=== PATIENT | male | born 1965 | race Caucasian/White ===

== ENCOUNTER 2017-02-16 13:30 | Inpatient (IN) | payer SELFPAY ==
[2017-02-16 13:43] VITALS: BMI 27.7
--- NOTE | 2017-02-16 15:18 | HP ---
COWS - Scale Resting Pulse: 1= SC 81-100 Sweatin= Chills/Flushing Restless Observation: 1= Difficult to Sit Still Pupil Size: 0= Normal to Room Light Bone or Joint Aches: 2= Severe Diffuse Aches Runny Nose/ Eye Tearin= Runny Nose/Eyes GI Upset > 30mins: 3= Vomiting/Diarrhea Tremor Observation: 2= Slight Tremor Visible Yawning Observation: 1= 1-2x During Session Anxiety or Irritability: 2=Irritable/Anxious Goose Flesh Skin: 3=Piloerection COWS Score: 18 Admission ROS S - HPI Chief Complaint: "I want to get clean so that I can get a job and get back to supporting my family." Patient is here to Detox from Heroin. Allergies/Adverse Reactions: Allergies Allergy/AdvReac Type Severity Reaction Status Date / Time No Known Allergies Allergy Verified 02/16/17 13:57 History of Present Illness: Patient is a 51 YO male here to Detox from Heroin. This is patient's first detox admission at [facility]. Patient has had previous Detox admissions at [facility] ([place]) and [facility] ([place], [place].) Mosty recent Detox: '[facility] ([place]). Longest period without drug use: 12 years ( 1995 - 2008). Exam Limitations: No Limitations - Ebola screening Have you traveled outside of the country in the last 21 days: No Have you had contact with anyone from an Ebola affected area: No Have you been sick,other than usual withdrawal symptoms: No Do you have a fever: No - Review of Systems Constitutional: Chills, Diaphoresis, Loss of Appetite, Malaise, Night Sweats, Changes in sleep, Unintentional Wgt. Loss (Lost approx. 15 lbs. over last 6 months.) EENT: reports: Nose Congestion, Sinus Pressure Respiratory: reports: No Symptoms reported Cardiac: reports: No Symptoms Reported GI: reports: Diarrhea, Nausea, Poor Appetite, Vomiting, Abdominal cramping : reports: No Symptoms Reported Musculoskeletal: reports: Back Pain Integumentary: reports: No Symptoms Reported Neuro: reports: No Symptoms reported Endocrine: reports: No Symptoms Reported Hematology: reports: No Symptoms Reported Psychiatric: reports: Judgement Intact, Mood/Affect Appropiate, Orientated x3, Anxious, Depressed (Occasional. No Past Treatment.) Other Systems: Reviewed and Negative Patient History - Patient Medical History Hx Anemia: No Hx Asthma: No Hx Chronic Obstructive Pulmonary Disease (COPD): No Hx Cancer: No Hx Cardiac Disorders: No Hx Congestive Heart Failure: No Hx Hypertension: No Hx Hypercholesterolemia: No Hx Pacemaker: No HX Cerebrovascular Accident: No Hx Seizures: No Hx Dementia: No Hx Diabetes: No Hx Gastrointestinal Disorders: No Hx Liver Disease: No Hx Genitourinary Disorders: No Hx Sexually Transmitted Disorders: No Hx Renal Disease (ESRD): No Hx Thyroid Disease: No Hx Human Immunodeficiency Virus (HIV): No (Last Tested: 2015: NEGATIVE.) Hx Hepatitis C: No (Last Tested: 2016: NEGATIVE.) Hx Depression: Yes (Occasional.) Hx Suicide Attempt: No (PATIENT DENIES CURRENT SI / HI.) Hx Bipolar Disorder: No Hx Schizophrenia: No Other Medical History: DENIES. - Patient Surgical History Past Surgical History: No Hx Neurologic Surgery: No Hx Cataract Extraction: No Hx Cardiac Surgery: No Hx Lung Surgery: No Hx Breast Surgery: No Hx Breast Biopsy: No Hx Abdominal Surgery: No Hx Appendectomy: No Hx Cholecystectomy: No Hx Genitourinary Surgery: No Hx Section: No Hx Orthopedic Surgery: No Anesthesia Reaction: No - PPD History Previous Implant?: Yes Documented Results: Negative w/o proof Implanted On Prior R Admission?: No PPD to be Administered?: Yes - Reproductive History Patient is a Female of Child Bearing Age (11 -55 yrs old): No (PATIENT IS MALE.) - Smoking Cessation Smoking history: Current every day smoker Have you smoked in the past 12 months: Yes Aproximately how many cigarettes per day: 40 Cigars Per Day: 0 Hx Chewing Tobacco Use: No Initiated information on smoking cessation: Yes 'Breaking Loose' booklet given: 02/16/17 (GIVEN ON UNIT.) - Substance & Tx. History Hx Alcohol Use: No Hx Substance Use: Yes Substance Use Type: Heroin Hx Substance Use Treatment: Yes (Detox/Rehab admissions at several locations ( most recent: '[facility])) - Substances Abused Heroin Route: Injection Frequency: Daily Amount used: 10-20 bags Age of first use: 20 Date of Last Use: 02/16/17 Family Disease History - Family Disease History Family Disease History: Diabetes: Grandparent ([place]), Heart Disease: Grandparent Admission Physical Exam BHS - Vital Signs Vital Signs: Vital Signs - 24 hr 02/16/17 13:39 Temperature 98.9 F Pulse Rate 90 Respiratory 18 Rate Blood Pressure 150/90 - Physical General Appearance: Yes: No Apparent Distress, Nourished, Appropriately Dressed , Anxious HEENTM: Yes: Hearing grossly Normal, Normocephalic, Normal Voice, GALA, Pharynx Normal Respiratory: Yes: Chest Non-Tender, Lungs Clear, No Respiratory Distress, No Accessory Muscle Use Neck: Yes: No masses,lesions,Nodules, Supple, Trachea in good position Breast: Yes: Breast Exam Deferred Cardiology: Yes: Regular Rhythm, Regular Rate, S1, S2 Abdominal: Yes: Normal Bowel Sounds, Non Tender, Soft, Protuberent Genitourinary: Yes: Within Normal Limits Back: Yes: Decreased Range of Motion Musculoskeletal: Yes: full range of Motion, Gait Steady Extremities: Yes: Normal Capillary Refill, Normal Inspection, Normal Range of Motion, Non-Tender Neurological: Yes: Fully Oriented, Alert, Normal Mood/Affect, Normal Response Integumentary: Yes: Normal Color, Dry, Warm, Track Han (Noted on bilateral forearms and bilateral upper legs. No signs of infection noted at any affected site.) Lymphatic: Yes: Within Normal Limits - Diagnostic (1) Opioid dependence with withdrawal Current Visit: Yes Status: Acute (2) Nicotine dependence Current Visit: Yes Status: Acute Qualifiers: Nicotine product type: cigarettes Substance use status: uncomplicated Qualified Code(s): F17.210 - Nicotine dependence, cigarettes, uncomplicated Cleared for Admission [facility] - Detox or Rehab [facility] Level of Care: Medically Managed Detox Regimen/Protocol: Methadone [facility] Breath Alcohol Content Breath Alcohol Content: 0 Urine Drug Screen - Results Drug Screen Negative: No Urine Drug Screen Results: OPI-Opiates, TCA-Tricyclic Antidepress, OXY-Oxycodone
[2017-02-16] MEDS ORDERED: MAGNESIUM CITRATE 300 ML BOTTLE PO PRN (15:44)
[2017-02-16] MEDS ORDERED: NICOTINE POLACRILEX 4 MG GUM BUC PRN (15:44)
[2017-02-16] MEDS ORDERED: ACETAMINOPHEN 325 MG TABLET (FP) PO PRN (15:44)
[2017-02-16] MEDS ORDERED: LOPERAMIDE HCL 2 MG CAPSULE PO PRN (15:44)
[2017-02-16] MEDS ORDERED: guaiFENesin/D-METHORPHAN HB 10 ML UNIT-DOSE CUPS PO PRN (15:44)
[2017-02-16] MEDS ORDERED: MAGNESIUM HYDROX 2400MG/30ML ORAL SUSPENSION 30 ML CUP PO PRN (15:44)
[2017-02-16] MEDS ORDERED: P-EPHED 60MG/TRIPROLIDI 2.5MG TABLET PO PRN (15:44)
[2017-02-16] MEDS ORDERED: MAG HYDROX/AL HYDROX/SIMETH 30 ML UNIT-DOSE CUP PO PRN (15:44)
[2017-02-16] MEDS ORDERED: MENTHOL/PHENOL 1 EACH UD MM PRN (15:44)
[2017-02-16] MEDS ORDERED: METHADONE HCL 10 MG TABLET (FOR DETOX USE ONLY) PO ONE ×2 (15:51→23:00)
[2017-02-16 18:44] LABS: HEMATOCRIT 45.1 % (35.4-49); HEMOGLOBIN 15.1 GM/dL (11.7-16.9); MCH 28.2 pg (25.7-33.7); MCHC 33.6 g/dl (32.0-35.9); MEAN PLT VOLUME 9.3 fl (7.5-11.1); PLATELET COUNT 186 K/MM3 (134-434); RBC 5.36 M/mm3 (4.00-5.60); RDW 13.8 % (11.9-15.9); WHITE BLOOD COUNT 7.1 K/mm3 (4.0-10.0)
[2017-02-16 18:50] LABS: ALBUMIN 4.2 g/dl (3.4-5.0); ANION GAP 5 (8-16); BLOOD UREA NITROGEN 20 mg/dL (7-18); CALCIUM 9.1 mg/dL (8.5-10.1); CHLORIDE 99 mmol/L (98-107); CO2 31 mmol/L (21-32); CREATININE 1.1 mg/dL (0.7-1.3); GLUCOSE,RANDOM 200 mg/dL (74-106); POTASSIUM 4.4 mmol/L (3.5-5.1); SGOT/AST 14 U/L (15-37); SGPT/ALT 34 U/L (12-78); SODIUM 135 mmol/L (136-145)
[2017-02-16 18:52] LABS: ALK PHOS 39 U/L (45-117); BILIRUBIN,TOTAL 0.5 mg/dL (0.2-1.0); TOT PROT 7.9 g/dl (6.4-8.2)
[2017-02-16] MEDS ORDERED: METHADONE HCL 10 MG TABLET (FOR DETOX USE ONLY) ONE (19:36)
[2017-02-16] MEDS: diazePAM 5 MG TABLET PO PRN (19:39)
[2017-02-16] MEDS: NICOTINE 21 MG/24 HOURS TOPICAL PATCH TD SCH (19:47)
[2017-02-16] MEDS: THIAMINE HCL 100 MG TABLET (FP) PO SCH (22:14)
[2017-02-16 23:45] LABS: URINE APPEARANCE TURBID; URINE BILIRUBIN NEGATIVE (NEGATIVE); URINE BLOOD NEGATIVE (NEGATIVE); URINE COLOR YELLOW; URINE GLUCOSE (UA) 1+ (NEGATIVE); URINE KETONE NEGATIVE (NEGATIVE); URINE LEUK ESTERASE NEGATIVE (NEGATIVE); URINE NITRITE NEGATIVE (NEGATIVE); URINE PROTEIN NEGATIVE (NEGATIVE); URINE UROBILINOGEN NEGATIVE mg/dL (0.2-1.0)
[2017-02-17] MEDS: diazePAM 5 MG TABLET PO PRN ×5 (01:35→19:11)
[2017-02-17] MEDS ORDERED: METHADONE HCL 10 MG TABLET (FOR DETOX USE ONLY) PO ONE (10:00)
[2017-02-17] MEDS: PRENATAL VITAMINS W/ FOLIC ACID TABLET (FP) PO SCH (10:19)
[2017-02-17] MEDS: NICOTINE 21 MG/24 HOURS TOPICAL PATCH TD SCH (10:20)
--- NOTE | 2017-02-17 10:25 | PN ---
BHS COWS - Scale Resting Pulse: 1= [place] 81-100 Sweatin= Chills/Flushing Restless Observation: 3= Extraneous Movement Pupil Size: 1= Pupils >than Normal Bone or Joint Aches: 2= Severe Diffuse Aches Runny Nose/ Eye Tearin= Runny Nose/Eyes GI Upset > 30mins: 2= Nausea/Diarrhea Tremor Observation of Outstretched Hands: 2= Slight Tremor Visible Yawning Observation: 1= 1-2x During Session Anxiety or Irritability: 2=Irritable/Anxious Goose Flesh Skin: 0=Smooth Skin COWS Score: 17 S Progress Note (SOAP) Subjective: alert,irritable,anxious,interrupted sleep,tremor,pain in the body and back Objective: 02/17/17 10:23 Vital Signs Temperature 98.8 F 02/17/17 04:00 Pulse Rate 84 02/17/17 04:00 Respiratory Rate 16 02/17/17 04:00 Blood Pressure 131/83 02/17/17 04:00 O2 Sat by Pulse Oximetry (%) ekg nsr,normal ecg Laboratory Last Values WBC 7.1 K/mm3 (4.0-10.0) 02/16/17 15:30 RBC 5.36 M/mm3 (4.00-5.60) 02/16/17 15:30 Hgb 15.1 GM/dL (11.7-16.9) 02/16/17 15:30 Hct 45.1 % (35.4-49) 02/16/17 15:30 MCV 84.0 fl (80-96) 02/16/17 15:30 MCH 28.2 pg (25.7-33.7) 02/16/17 15:30 MCHC 33.6 g/dl (32.0-35.9) 02/16/17 15:30 RDW 13.8 % (11.9-15.9) 02/16/17 15:30 Plt Count 186 K/MM3 (134-434) 02/16/17 15:30 MPV 9.3 fl (7.5-11.1) 02/16/17 15:30 Sodium 135 mmol/L (136-145) L 02/16/17 15:30 Potassium 4.4 mmol/L (3.5-5.1) 02/16/17 15:30 Chloride 99 mmol/L (98-107) 02/16/17 15:30 Carbon Dioxide 31 mmol/L (21-32) 02/16/17 15:30 Anion Gap 5 (8-16) L 02/16/17 15:30 BUN 20 mg/dL (7-18) H 02/16/17 15:30 Creatinine 1.1 mg/dL (0.7-1.3) 02/16/17 15:30 Creat Clearance w eGFR > 60 (>60) 02/16/17 15:30 Random Glucose 200 mg/dL (74-106) H 02/16/17 15:30 Calcium 9.1 mg/dL (8.5-10.1) 02/16/17 15:30 Total Bilirubin 0.5 mg/dL (0.2-1.0) 02/16/17 15:30 AST 14 U/L (15-37) L 02/16/17 15:30 ALT 34 U/L (12-78) 02/16/17 15:30 Alkaline Phosphatase 39 U/L (45-117) L 02/16/17 15:30 Total Protein 7.9 g/dl (6.4-8.2) 02/16/17 15:30 Albumin 4.2 g/dl (3.4-5.0) 02/16/17 15:30 Urine Color Yellow 02/16/17 15:35 Urine Appearance Turbid 02/16/17 15:35 Urine pH 5.0 (5.0-8.0) 02/16/17 15:35 Ur Specific [place] 1.027 (1.001-1.035) 02/16/17 15:35 Urine Protein Negative (NEGATIVE) 02/16/17 15:35 Urine Glucose (UA) 1+ (NEGATIVE) H 02/16/17 15:35 Urine Ketones Negative (NEGATIVE) 02/16/17 15:35 Urine Blood Negative (NEGATIVE) 02/16/17 15:35 Urine Nitrite Negative (NEGATIVE) 02/16/17 15:35 Urine Bilirubin Negative (NEGATIVE) 02/16/17 15:35 Urine Urobilinogen Negative mg/dL (0.2-1.0) 02/16/17 15:35 Assessment: 02/17/17 10:24 withdrawal symptom Plan: continue detox
--- NOTE | 2017-02-17 12:35 | EKG ---
Test Reason : Blood Pressure : / mmHG Vent. Rate : 082 BPM Atrial Rate : 082 BPM P-R Int : 206 ms QRS Dur : 098 ms QT Int : 362 ms P-R-T Axes : 053 -22 027 degrees QTc Int : 422 ms NORMAL SINUS RHYTHM NORMAL ECG NO PREVIOUS ECGS AVAILABLE Confirmed by DAYSI DUMAS MD ([id number]) on 02/17/2017 12:34:41 PM Referred By: Confirmed By:DAYSI DUMAS MD
[2017-02-17] MEDS: THIAMINE HCL 100 MG TABLET (FP) PO SCH (22:25)
[2017-02-17] MEDS: cloNIDine HCL 0.1 MG TABLET PO SCH (22:25)
[2017-02-17] MEDS: CYCLOBENZAPRINE HCL 10 MG TABLET (FP) PO PRN (22:25)
[2017-02-18] MEDS: diazePAM 5 MG TABLET PO PRN ×3 (01:43→22:31)
--- NOTE | 2017-02-18 09:39 | PN ---
BHS COWS - Scale Resting Pulse: 2= MS 101-120 Sweatin= Chills/Flushing Restless Observation: 3= Extraneous Movement Pupil Size: 1= Pupils >than Normal Bone or Joint Aches: 2= Severe Diffuse Aches Runny Nose/ Eye Tearin= Runny Nose/Eyes GI Upset > 30mins: 3= Vomiting/Diarrhea Tremor Observation of Outstretched Hands: 2= Slight Tremor Visible Yawning Observation: 1= 1-2x During Session Anxiety or Irritability: 2=Irritable/Anxious Goose Flesh Skin: 0=Smooth Skin COWS Score: 19 S Progress Note (SOAP) Subjective: ALERT,IRRITABLE,ANXIOUS,INTERRUPTED SLEEP,PAIN IN THE BODY AND BACK Objective: 02/18/17 09:35 Vital Signs Temperature 97.9 F 02/18/17 09:31 Pulse Rate 114 H 02/18/17 09:31 Respiratory Rate 20 02/18/17 09:31 Blood Pressure 133/61 02/18/17 09:31 O2 Sat by Pulse Oximetry (%) Laboratory Last Values WBC 7.1 K/mm3 (4.0-10.0) 02/16/17 15:30 RBC 5.36 M/mm3 (4.00-5.60) 02/16/17 15:30 Hgb 15.1 GM/dL (11.7-16.9) 02/16/17 15:30 Hct 45.1 % (35.4-49) 02/16/17 15:30 MCV 84.0 fl (80-96) 02/16/17 15:30 MCH 28.2 pg (25.7-33.7) 02/16/17 15:30 MCHC 33.6 g/dl (32.0-35.9) 02/16/17 15:30 RDW 13.8 % (11.9-15.9) 02/16/17 15:30 Plt Count 186 K/MM3 (134-434) 02/16/17 15:30 MPV 9.3 fl (7.5-11.1) 02/16/17 15:30 Sodium 135 mmol/L (136-145) L 02/16/17 15:30 Potassium 4.4 mmol/L (3.5-5.1) 02/16/17 15:30 Chloride 99 mmol/L (98-107) 02/16/17 15:30 Carbon Dioxide 31 mmol/L (21-32) 02/16/17 15:30 Anion Gap 5 (8-16) L 02/16/17 15:30 BUN 20 mg/dL (7-18) H 02/16/17 15:30 Creatinine 1.1 mg/dL (0.7-1.3) 02/16/17 15:30 Creat Clearance w eGFR > 60 (>60) 02/16/17 15:30 POC Glucometer 231 UNITS (80-120) 02/18/17 07:59 Random Glucose 200 mg/dL (74-106) H 02/16/17 15:30 Calcium 9.1 mg/dL (8.5-10.1) 02/16/17 15:30 Total Bilirubin 0.5 mg/dL (0.2-1.0) 02/16/17 15:30 AST 14 U/L (15-37) L 02/16/17 15:30 ALT 34 U/L (12-78) 02/16/17 15:30 Alkaline Phosphatase 39 U/L (45-117) L 02/16/17 15:30 Total Protein 7.9 g/dl (6.4-8.2) 02/16/17 15:30 Albumin 4.2 g/dl (3.4-5.0) 02/16/17 15:30 Urine Color Yellow 02/16/17 15:35 Urine Appearance Turbid 02/16/17 15:35 Urine pH 5.0 (5.0-8.0) 02/16/17 15:35 Ur Specific [place] 1.027 (1.001-1.035) 02/16/17 15:35 Urine Protein Negative (NEGATIVE) 02/16/17 15:35 Urine Glucose (UA) 1+ (NEGATIVE) H 02/16/17 15:35 Urine Ketones Negative (NEGATIVE) 02/16/17 15:35 Urine Blood Negative (NEGATIVE) 02/16/17 15:35 Urine Nitrite Negative (NEGATIVE) 02/16/17 15:35 Urine Bilirubin Negative (NEGATIVE) 02/16/17 15:35 Urine Urobilinogen Negative mg/dL (0.2-1.0) 02/16/17 15:35 Ur Leukocyte Esterase Negative (NEGATIVE) 02/16/17 15:35 RPR Titer Nonreactive (NONREACTIVE) 02/16/17 15:30 Hepatitis C Antibody 10.5 s/co ratio (0.0-0.9) H 02/16/17 15:30 HIV 1&2 Antibody Screen Negative 02/16/17 15:30 HIV P24 Antigen Negative 02/16/17 15:30 Assessment: 02/18/17 09:36 WITHDRAWAL SYMPTOM Plan: CONTINUE DETOX,NCS,INITIAL GLUCOE 200.HB A1C,BGM MONITORING,HEPATITIS C POSITIVE ,ADVISE FOLLOW UP WITH [facility] AFTER DISCHARGE FOR EVALUATION FOR HEPATITIS C AND FOLLOW UP AFTER DISCHARGE, [employer] CONSULATION FOR HYPERGLYCEMIA,POSSIBLE NEW ON SET OF DIABETES MELLITUS
[2017-02-18] MEDS ORDERED: METHADONE HCL 5 MG TABLET (FOR DETOX USE ONLY) PO ONE (10:00)
[2017-02-18] MEDS: NICOTINE 21 MG/24 HOURS TOPICAL PATCH TD SCH (10:20)
[2017-02-18] MEDS: cloNIDine HCL 0.1 MG TABLET PO SCH ×2 (10:20→22:31)
[2017-02-18] MEDS: PRENATAL VITAMINS W/ FOLIC ACID TABLET (FP) PO SCH (12:19)
[2017-02-18] MEDS: CYCLOBENZAPRINE HCL 10 MG TABLET (FP) PO PRN (22:31)
[2017-02-18] MEDS: THIAMINE HCL 100 MG TABLET (FP) PO SCH (22:33)
[2017-02-18] MEDS: IBUPROFEN 400 MG TABLET (FP) PO PRN (22:33)
[2017-02-19] MEDS: diazePAM 5 MG TABLET PO PRN ×2 (05:39→10:25)
[2017-02-19] MEDS: CYCLOBENZAPRINE HCL 10 MG TABLET (FP) PO PRN (05:40)
[2017-02-19] MEDS ORDERED: METHADONE HCL 5 MG TABLET (FOR DETOX USE ONLY) PO ONE (10:00)
[2017-02-19 10:09] VITALS: BP 111/77; PULSE 123; TEMP 978
--- NOTE | 2017-02-19 10:17 | PN ---
BHS Progress Note (SOAP) Subjective: ALERT,IRRITABLE,ANXIOUS,INTERRUPTED SLEEP,PAIN IN THE BODY Objective: 02/19/17 10:15 Vital Signs Temperature 978 F H 02/19/17 10:08 Pulse Rate 123 H 02/19/17 10:08 Respiratory Rate 18 02/19/17 10:08 Blood Pressure 111/77 02/19/17 10:08 O2 Sat by Pulse Oximetry (%) Laboratory Last Values WBC 7.1 K/mm3 (4.0-10.0) 02/16/17 15:30 RBC 5.36 M/mm3 (4.00-5.60) 02/16/17 15:30 Hgb 15.1 GM/dL (11.7-16.9) 02/16/17 15:30 Hct 45.1 % (35.4-49) 02/16/17 15:30 MCV 84.0 fl (80-96) 02/16/17 15:30 MCH 28.2 pg (25.7-33.7) 02/16/17 15:30 MCHC 33.6 g/dl (32.0-35.9) 02/16/17 15:30 RDW 13.8 % (11.9-15.9) 02/16/17 15:30 Plt Count 186 K/MM3 (134-434) 02/16/17 15:30 MPV 9.3 fl (7.5-11.1) 02/16/17 15:30 Sodium 135 mmol/L (136-145) L 02/16/17 15:30 Potassium 4.4 mmol/L (3.5-5.1) 02/16/17 15:30 Chloride 99 mmol/L (98-107) 02/16/17 15:30 Carbon Dioxide 31 mmol/L (21-32) 02/16/17 15:30 Anion Gap 5 (8-16) L 02/16/17 15:30 BUN 20 mg/dL (7-18) H 02/16/17 15:30 Creatinine 1.1 mg/dL (0.7-1.3) 02/16/17 15:30 Creat Clearance w eGFR > 60 (>60) 02/16/17 15:30 POC Glucometer 231 UNITS (80-120) 02/18/17 07:59 Random Glucose 200 mg/dL (74-106) H 02/16/17 15:30 Calcium 9.1 mg/dL (8.5-10.1) 02/16/17 15:30 Total Bilirubin 0.5 mg/dL (0.2-1.0) 02/16/17 15:30 AST 14 U/L (15-37) L 02/16/17 15:30 ALT 34 U/L (12-78) 02/16/17 15:30 Alkaline Phosphatase 39 U/L (45-117) L 02/16/17 15:30 Total Protein 7.9 g/dl (6.4-8.2) 02/16/17 15:30 Albumin 4.2 g/dl (3.4-5.0) 02/16/17 15:30 Urine Color Yellow 02/16/17 15:35 Urine Appearance Turbid 02/16/17 15:35 Urine pH 5.0 (5.0-8.0) 02/16/17 15:35 Ur Specific [place] 1.027 (1.001-1.035) 02/16/17 15:35 Urine Protein Negative (NEGATIVE) 02/16/17 15:35 Urine Glucose (UA) 1+ (NEGATIVE) H 02/16/17 15:35 Urine Ketones Negative (NEGATIVE) 02/16/17 15:35 Urine Blood Negative (NEGATIVE) 02/16/17 15:35 Urine Nitrite Negative (NEGATIVE) 02/16/17 15:35 Urine Bilirubin Negative (NEGATIVE) 02/16/17 15:35 Urine Urobilinogen Negative mg/dL (0.2-1.0) 02/16/17 15:35 Ur Leukocyte Esterase Negative (NEGATIVE) 02/16/17 15:35 RPR Titer Nonreactive (NONREACTIVE) 02/16/17 15:30 Hepatitis C Antibody 10.5 s/co ratio (0.0-0.9) H 02/16/17 15:30 HIV 1&2 Antibody Screen Negative 02/16/17 15:30 HIV P24 Antigen Negative 02/16/17 15:30 Assessment: 02/19/17 10:16 WITHDRAWAL SYMPTOM Plan: CONTINUE DETOX,BGM MONITORING
[2017-02-19] MEDS: IBUPROFEN 400 MG TABLET (FP) PO PRN (10:25)
[2017-02-19] MEDS: NICOTINE 21 MG/24 HOURS TOPICAL PATCH TD SCH (10:26)
[2017-02-19] MEDS: cloNIDine HCL 0.1 MG TABLET PO SCH (10:26)
[2017-02-19] MEDS: PRENATAL VITAMINS W/ FOLIC ACID TABLET (FP) PO SCH (10:28)
--- NOTE | 2017-02-19 10:54 | PN ---
[facility] Progress Note Note: PATIENT DID NOT WANT TO COMPLETE TREATMENT,SEEN BY COUNSELOR,SIGNED AMA, ADVISE TO FOLLOW UP WITH CLINIC AT [place] FOR MEDICAL PROBLEM
--- NOTE | 2017-02-19 11:02 | DS ---
[facility] Detox Discharge Summary Admission Date: 02/16/17 Discharge Date: 02/19/17 - History Present History: Opioid Dependence Additional Comments: PATIENT DID NOT WANT TO CONTINUE TREATMENT,SEEN BY COUNSELOR,SIGNED RELEASE AMA, FOLLOW UP WITH CLINIC AT [place] FOR DIABETES AND HEPATITIS C Pertinent Past History: HYPERCHOLESTEROLEMIA NICOTINE DEPENDENCE - Physical Exam Results Vital Signs: Vital Signs Temperature 978 F H 02/19/17 10:08 Pulse Rate 123 H 02/19/17 10:08 Respiratory Rate 18 02/19/17 10:08 Blood Pressure 111/77 02/19/17 10:08 O2 Sat by Pulse Oximetry (%) Pertinent Admission Physical Exam Findings: WITHDRAWAL SYMPTOM - Medication Discharge Medications: Ambulatory Orders NK [No Known Home Medication] 02/16/17 - Diagnosis (1) Opioid dependence with withdrawal Current Visit: Yes Status: Acute (2) Nicotine dependence Current Visit: Yes Status: Acute Qualifiers: Nicotine product type: cigarettes Substance use status: uncomplicated Qualified Code(s): F17.210 - Nicotine dependence, cigarettes, uncomplicated (3) Hypercholesterolemia Current Visit: Yes Status: Acute (4) Diabetes mellitus, new onset Current Visit: Yes Status: Acute (5) Hepatitis C Current Visit: Yes Status: Acute - AMA Did Patient Leave Against Medical Advice: Yes
[2017-02-20] MEDS ORDERED: METHADONE HCL 10 MG TABLET (FOR DETOX USE ONLY) PO ONE (10:00)
[2017-02-21] MEDS ORDERED: METHADONE HCL 5 MG TABLET (FOR DETOX USE ONLY) PO ONE (06:00)
== END 2017-02-19 11:10 | disposition left against medical advice (07) | DRG 770 ==
LOC: YASAS 13:30 → Y6N 15:27
PROVIDERS: ADMIT Internal Medicine; ATTEND Internal Medicine
PROC: HZ2ZZZZ Detoxification Services for Substance Abuse Treatment (ICD-10-PCS; principal; 2017-02-16)
DX: F11.23 Opioid dependence with withdrawal (principal); F17.210 Nicotine dependence, cigarettes, uncomplicated; F32.9 Major depressive disorder, single episode, unspecified; E78.00 Pure hypercholesterolemia, unspecified; E11.9 Type 2 diabetes mellitus without complications; B18.2 Chronic viral hepatitis C
CPT/HCPCS: 36415; 80053; 81003; 85027; 86593; 86803; 87389; 87522; 93005; 93010